=== PATIENT | female | born 2005 | race Caucasian/White ===

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

== ENCOUNTER 2023-10-29 23:34 | Emergency (ER) | payer OTHER, SELFPAY ==
--- NOTE | ~2023-10-29 | CT_ITS ---
CT of the Abdomen and Pelvis: Indication: Flank pain, dysuria Technique: 2.5 mm axial scans were obtained through the abdomen and pelvis following intravenous adm inistration of 100 cc of Omnipaque 350. Dose reduction technique was used on this scan by utilizing a utomated exposure control and iterative reconstruction technique. The dose-length product (DLP) was 2 22.18 mGy-cm. Findings: Scans through the lung bases demonstrate 3 mm left lower lobe pulmonary nodule. The liver, spleen, pancreas, gallbladder, adrenals and kidneys are within normal limits. No evidence of aortic aneurysm. No lymphadenopathy. Questionable mild nonspecific enteritis. No bowel obstruction. Large bowel unremarkable. No abscess o r free air. Images through the pelvis were performed. Urinary bladder unremarkable. No pelvic mass seen. No ascit es. Impression: Possible nonspecific small bowel enteritis. 3 mm left lower lobe pulmonary nodule. According to Fleischner Society criteria, for a low-risk patie nt, no further follow-up required. For a high-risk patient, consider 12 month follow-up CT. Reviewed, dictated and finalized at [facility]. Impression: Possible nonspecific small bowel enteritis. 3 mm left lower lobe pulmonary nodule. According to Fleischner Society criteria , for a low-risk patient, no further follow-up required. For a high-risk patien t, consider 12 month follow-up CT.
[2023-10-29 23:57] LABS: Basophils Percent Auto 0.2 % (0.2-1.2); Eosinophils Percent Auto 0.1 % (0-4.4); Hematocrit 41.7 % (37.0-47.0); Hemoglobin 14.7 g/dL (12.0-15.0); Immature Granulocyte Absolute 0.12 K/mm3 (0.00-0.031); Immature Granulocyte Percent A 0.7 % (0-0.5); Lymphocytes Absolute Auto 0.95 K/mm3 (0.9-3.2); Lymphocytes Percent Auto 5.3 % (18.3-44.2); Mean Corpuscular HGB Conc 35.3 g/dl (32-36); Mean Corpuscular Hemoglobin 33.1 pg (26-34); Mean Corpuscular Volume 93.9 fl (80-100); Mean Platelet Volume 10.4 fl (7.4-10.4); Monocytes Absolute Auto 0.6 K/mm3 (0.1-0.6); Monocytes Percent Auto 3.6 % (2.6-8.5); Neutrophils Absolute Auto 16.2 K/mm3 (1.3-6.7); Neutrophils Percent Auto 90.1 % (45.5-73.1); Platelet Count Result 241 k/mm3 (150-375); Red Blood Count 4.44 M/mm3 (4.2-5.4); Red Cell Distribution Width 12.1 % (11.5-14.5)
[2023-10-30 00:06] LABS: Alanine Aminotransferase 26 U/L (6-35); Albumin Level 4.8 g/dL (3.5-5.1); Alkaline Phosphatase 77 U/L (38-126); Anion Gap 10 mmol/L (4-12); Aspartate Amino Transferase 27 U/L (14-36); Bilirubin,Total 3.7 mg/dL (0.2-1.3); Blood Urea Nitrogen 12 mg/dL (7-17); Calcium 9.7 mg/dL (8.4-10.2); Carbon Dioxide 25 mmol/L (22-30); Chloride 100 mmol/L (98-107); Estimated CRCL calculation 84 ml/min; Estimated Glomerular Filt Rate > 60; Glucose 126 mg/dL (65-110); Lipase 24 U/L (23-300); Potassium 3.9 mmol/L (3.4-5.0); Sodium 135 mmol/L (137-145)
[2023-10-30 00:20] LABS: Appearance Urine Cloudy (Clear); Bacteria Urine None Seen /hpf; Bilirubin Urine 2+ (Negative); Blood Urine 2+ (Negative); Color Urine Red (Yellow); Glucose Urine UA Negative (Negative); Ketones Urine Negative (Negative); Leukocyte Esterase Ur 2+ LEU/UL (Negative); Mucus Urine Present /lpf; Need Manual Microscopic Reviewed; Nitrate Urine Positive (Negative); Non Pathogenic Casts 0-2; Protein Urine 2+ mg/dL (Negative); RBC Urine 51-100 /hpf (0-2); Specific Grav Ur 1.044 (1.001-1.035); Squamous Epithelial Cell Urine Few /hpf (Few); WBC Urine 21-50 /hpf (0-3)
[2023-10-30 00:24] LABS: Add Urine Microscopic? YES
[2023-10-30 02:10] VITALS: BP 116/73; PULSE 80; RESP 20; TEMP 36.6; O2SAT 100
--- NOTE | 2023-10-30 02:36 | ED.ABDPAIN ---
HPI - Abdominal Pain General Chief Complaint: Abdominal Pain Stated Complaint: I'm having really bad lower abd pain Time Seen by Provider: 10/30/23 02:12 History of Present Illness HPI narrative: Patient is a 18-year-old female with history of recurrent urinary tract infections here today with lower abdominal pain, body aches, dysuria. She states that her symptoms began yesterday morning and worsened throughout the day. She took Tylenol last around 10:00 p.m. which somewhat helped with her pain. She came into the emergency department because of continued pain and concern for possible urinary tract infection. She believes her last urinary tract infection was more than 6 months ago. She is currently on her menstrual cycle. She has not had any abdominal surgeries in the past. She denies fever or chills. She is sexually active, has regular condom use. No sick contacts. No diarrhea, cough, congestion. Related Data Allergies Allergy/AdvReac Type Severity Reaction Status Date / Time No Known Allergies Allergy Verified 10/30/23 02:08 Review of Systems Review of Systems: All systems reviewed & are unremarkable except as noted in HPI and below PMFSH Past Medical History Medical History No significant past medical history Surgical History Surgical History Hx of tonsillectomy No significant past surgical history Family History Family History Other No significant family history Social History Social History (Updated 06/21/23 @ 09:15 by Janet Llamas MA) Smoking status: Current some day smoker Tobacco type: e-cigarettes/vaping Alcohol intake: current Alcohol use details: socially Substance use: never Substance use type: does not use Do You Feel Safe in your Home?: Yes Lack of Transportation: No Lack of Food: Never True Current Housing: I Have Housing Concerned About Future Housing: No Difficulty Paying Gas/Electric Bills: No Difficulty Paying for Meds: No Currently Unemployed: No Education: High School Diploma/GED Difficulty w/ Childcare or Family Care: No Living arrangements: with family Occupation/Education: student Gender identity (if verbalized by the patient): Female Sexual Orientation (if Verbalized by the Patient): Straight or Heterosexual Exam Narrative: GENERAL: Well-appearing, well-nourished, and in no acute distress. HEAD: Normocephalic, atraumatic. EYES: PERRLA and EOMI. ENT: Nares clear. Mucous membranes moist. NECK: Supple. CHEST: Clear to auscultation. No respiratory distress. HEART: Regular rate and rhythm. Normal peripheral pulses. ABDOMEN: Soft, Suprapubic tenderness as well as bilateral adnexal tenderness. No rebound or guarding appreciated. Bilateral CVA tenderness present. EXTREMITIES: Normal range of motion. No edema. SKIN: Warm, dry, no rash. NEURO: No focal deficits. Alert and oriented x3. PSYCH: Normal mood and affect. Course Course Emergency Course: Chart review performed. Patient here with lower abdominal pain x 1 day. Triage vitals normal. WBC of 18, electrolytes normal. Bilirubin elevated at 3.7, lipase normal. UA consistent with UTI. Will order 1g rocephin. Patient seen evaluated, nontoxic appearing. She does appear to be in some pain. Offered morphine, patient refused. Updated them on results of urinary tract infection. They do note she has a history of prior pyelonephritis in the past and this feels similar. Awaiting CT and lactic. Patient and family agreeable. CT shows no renal calculi or hydronephrosis. No gall stones seen. Appendix is limited however visualized portions are unremarkable. Colon is distended containing fluid, stool, air. This could be related to ileus or nonspecific enteritis. Will order toradol for pain. Lactic negative. Urine
[2023-10-30 03:30] LABS: Lactic Acid Reflex 0.7 mmol/L (0.7-2.0)
[2023-10-30] MEDS: KETOROLAC 15 MG/ML VIAL (*BKC) IV PUSH (03:43)
[2023-10-30 04:20] VITALS: BP 111/68; PULSE 83; RESP 17; O2SAT 98
== END 2023-10-30 04:22 | disposition home or self-care (01) ==
PROVIDERS: Emergency Provider Student in an Organized Health Care Education/Training Program
DX: N12 Tubulo-interstitial nephritis, not specified as acute or chronic (principal); F17.290 Nicotine dependence, other tobacco product, uncomplicated; R91.1 Solitary pulmonary nodule
CPT/HCPCS: 36415; 74177; 80053; 81001; 81025; 83605; 83690; 85025; 87040; 87086; 96365; 96375; 99284; J0696; J1885; Q9967